=== PATIENT | male | born 1975 | race Caucasian/White ===

== ENCOUNTER 2020-12-15 09:04 | Emergency (ER) | payer OTHER ==
[2020-12-15 10:11] LABS: BASOPHIL 0.4 % (0-2); EOSINOPHIL 1.9 % (0-5); HCT 40.5 % (42.0-52.0); HGB 13.8 g/dl (13.2-18.0); LYMPHOCYTE 20.6 % (15-48); MCH 27.5 pg (25.0-31.0); MCHC 34.1 g/dL (32.0-36.0); MCV 80.7 fL (78.0-100.0); MONOCYTE 8.1 % (0-12); MPV 9.1 fL (6.0-9.5); NEUTROPHIL 68.7 % (41-80); NRBC 0; PLT 219 K/uL (150-400); RBC 5.02 M/uL (4.70-6.00); RDW 13.6 % (11.5-14.0); WBC 7.2 K/uL (4.0-10.5)
[2020-12-15 10:44] LABS: CREATININE 1.09 mg/dL (0.67-1.17); POTASSIUM 3.5 mmol/L (3.5-5.1)
[2020-12-15 10:45] LABS: ALBUMIN 3.9 g/dL (3.4-5.0); BILIRUBIN - TOTAL 1.5 mg/dL (0.2-1.0); GLOBULIN (CALCULATION) 3.1 g/dL; MAGNESIUM 1.9 mg/dL (1.8-2.4)
[2020-12-15 10:46] LABS: PRO-BNP 65 pg/mL (<125)
[2020-12-15 11:55] LABS: BILIRUBIN NEGATIVE (NEGATIVE); BLOOD NEGATIVE Ery/uL (NEGATIVE); CLARITY CLEAR (CLEAR); COLOR YELLOW (YELLOW); GLUCOSE (U) NORMAL (NORMAL); LEUKOCYTES NEGATIVE Leu/uL (NEGATIVE); NITRITE NEGATIVE (NEGATIVE); PROTEIN NEGATIVE (NEGATIVE); SPECIFIC GRAVITY >=1.030 (1.001-1.030); UROBILINOGEN 0.2 mg/dL (0.2-1.0); pH 5.5 (5.0-9.0)
== END 2020-12-15 14:55 | disposition home or self-care (01) ==
LOC: FER 09:04
PROVIDERS: Emergency Medicine
DX: I10 Essential (primary) hypertension (principal); F19.239 Other psychoactive substance dependence with withdrawal, unspecified; F17.210 Nicotine dependence, cigarettes, uncomplicated; Z88.0 Allergy status to penicillin; Z88.5 Allergy status to narcotic agent; Z79.899 Other long term (current) drug therapy
CPT/HCPCS: 36415; 70450; 71250; 80053; 81003; 82550; 83735; 83880; 84145; 84484; 85025; 93005; J3411; J3475; J7030